=== PATIENT | female | born 1950 | race Caucasian/White ===

== ENCOUNTER → 2016-09-05 | Outpatient (CLI) | payer BC ==
[~2016-09-05] MED LIST: LEVAQUIN 5500 MG/TA1 PO; LEVOTHYROXIN0.088 MG PO; SYNTHROID0.088 MG/T PO
== END ==
LOC: MC.RAD 14:54
DX: Z12.31 Encounter for screening mammogram for malignant neoplasm of breast (principal)

== ENCOUNTER → 2017-09-30 | Outpatient (CLI) | payer BC | LOC: MC.RAD 14:00 | DX: Z12.31 Encounter for screening mammogram for malignant neoplasm of breast (principal) ==

== ENCOUNTER → 2018-10-13 | Outpatient (CLI) | payer BC | LOC: MC.RAD 14:15 | DX: Z12.31 Encounter for screening mammogram for malignant neoplasm of breast (principal) ==

== ENCOUNTER → 2019-10-27 | Outpatient (CLI) | payer BC | LOC: MC.RAD 12:51 | DX: Z12.31 Encounter for screening mammogram for malignant neoplasm of breast (principal) ==

== ENCOUNTER → 2020-10-31 | Outpatient (CLI) | payer BC ==
[~2020-10-31] MED LIST changes: +EPIPEN 2-PAK1 MG/ML IM; +PEPCID 20MG TAB20 MG PO; +PREDNISONE10 MG PO; +SYNTHROID0.075 MG/T PO; +ZYRTEC 10MG10 MG PO
== END ==
LOC: MC.RAD 14:26
DX: Z12.31 Encounter for screening mammogram for malignant neoplasm of breast (principal)

== ENCOUNTER 2021-01-07 04:14 | Observation (INO) | payer MEDICARE ==
[2021-01-07] VITALS (124 sets, daily range): BP systolic 138–179; BP diastolic 61–88; PULSE 71–86; TEMP 97.6–98.4; O2SAT 90–100
[~2021-01-07] VITALS: Ht 157.5 cm; Wt 68.2 kg
[~2021-01-07 04:14] MED LIST changes: -EPIPEN 2-PAK1 MG/ML IM; -PEPCID 20MG TAB20 MG PO; -PREDNISONE10 MG PO; -SYNTHROID0.075 MG/T PO; -ZYRTEC 10MG10 MG PO
[2021-01-07] MEDS ORDERED: SYNTHROID0.075 MG/T PO (07:58)
--- NOTE | 2021-01-07 08:30 | NUR ---
Pt arrived to ICU room 5. She is A/O x4, she is accompanied by her . Pt currently denies any pain. Feels that the swelling to her lips and tongue have improved although still present to lower lip. She does have a raspy voice and feels this is different than baseline. She denies any difficulty breathing at this time. No pain present. POC discussed with patient who verbalizes understanding. IV to [facility] patent. No needs at this time. Call light within reach.
--- NOTE | 2021-01-07 20:30 | NUR ---
Initial shift assessment done- denies pain, denies SOB, No lip/facial swelling noted- denies problems with swallowing. VSS, will have some jello for a snack- remains on C.L
[2021-01-08 01:59] VITALS: BP 145/98; PULSE 84; TEMP 97.7
--- NOTE | 2021-01-08 02:00 | NUR ---
Patient states hand itching-- went to room and pt had right hand edema- very red in between finges- swelling mainly over knuckles,, also has red rash in a [facility] around nose and mouth and has hives of various sizes on abdomen and back-- Shantel ALFRED called- will give Benadryl IV also she will be up to see patient. VSS, NO SOB . No voice changes. No lip swelling noted-
[2021-01-08 04:13] VITALS: BP 139/62; PULSE 81; TEMP 98.5
--- NOTE | 2021-01-08 04:30 | NUR ---
Still has circular rash to face- right hand redness is much improved- still has some edema to right hand over knuckles, hives to abdomen and back are gone, does have some redness between left fingers and over left knuckles.. States feels fine, has been sleeping, VSS.
[2021-01-08 06:08] LABS: BASO % 0.1 % (0.0-2.0); GRAN # 8.4 (1.4-6.5); GRAN % 81.6 % (42.2-75.2); HEMATOCRIT 41.1 % (37.0-47.0); HEMOGLOBIN 13.8 g/dl (12.5-16.0); LYMPH # 1.5 (1.2-3.4); LYMPH % 14.3 % (20.0-51.0); MEAN CELL VOLUME 87 fl (80.0-100.0); MEAN CORPUSCULAR HEMOGLOBIN 29 pg (27.0-31.0); MEAN CORPUSCULAR HGB CONC 34 g/dl (33.0-37.0); MEAN PLATELET VOLUME 8.9 fl (7.4-10.4); MONO # 0.4 (0.1-0.6); MONO % 3.5 % (1.7-9.3); PLATELET COUNT 219 K/mm3 (130-400); RED BLOOD COUNT 4.74 M/mm3 (4.10-5.30); REDCELL DISTRIBUTION WIDTH-CV 12.5 % (11.5-14.5)
[2021-01-08 06:26] LABS: ALBUMIN 3.8 gm/dL (3.5-5.0); BILIRUBIN,TOTAL 0.4 mg/dL (0.0-1.0); CALCIUM 8.9 mg/dL (8.4-10.2); CREATININE, serum 0.62 (0.52-1.25); TOTAL PROTEIN 6.6 gm/dL (6.4-8.2)
[2021-01-08 07:58] VITALS: BP 144/96; PULSE 82; TEMP 98.1
--- NOTE | 2021-01-08 08:29 | NUR ---
Pt awake upon entry, sitting in the recliner. No C/O pain at this time. Shift assessment complete, left Pt call light in reach.
[2021-01-08] MEDS ORDERED: ZYRTEC 10MG10 MG PO (10:10)
[2021-01-08] MEDS ORDERED: PREDNISONE10 MG PO (10:10)
[2021-01-08] MEDS ORDERED: PEPCID 20MG TAB20 MG PO (10:11)
[2021-01-08] MEDS ORDERED: EPIPEN 2-PAK1 MG/ML IM (10:12)
--- NOTE | 2021-01-08 12:23 | NUR ---
Pt discharged to home. Discussed discharge instructions with Pt and spouse, answered questions. Escorted Pt to entrance, Pt left with spouse via private transportation.
== END 2021-01-08 12:25 | disposition home or self-care (01) ==
LOC: COL.ER 04:14 → ICU 06:29 → MEDICAL 12:39
PROVIDERS: Student in an Organized Health Care Education/Training Program; ADMIT Internal Medicine
DX: T78.3XXA Angioneurotic edema, initial encounter (principal); E03.9 Hypothyroidism, unspecified; Z79.890 Hormone replacement therapy; M25.50 Pain in unspecified joint; R21 Rash and other nonspecific skin eruption
CPT/HCPCS: 99239; G0378; J0171; J1200; J2920; J2930; J7030

== ENCOUNTER → 2021-11-22 | Outpatient (CLI) | payer MEDICARE ==
[~2021-11-22] MED LIST changes: +EPIPEN 2-PAK1 MG/ML IM; +PEPCID 20MG TAB20 MG PO; +PREDNISONE10 MG PO; +SYNTHROID0.075 MG/T PO; +ZYRTEC 10MG10 MG PO
== END ==
LOC: MC.RAD 11-06 10:00
DX: Z12.31 Encounter for screening mammogram for malignant neoplasm of breast (principal)

== ENCOUNTER → 2023-12-05 | Outpatient (CLI) | payer MEDICARE | LOC: MC.RAD 05:38 | DX: Z12.31 Encounter for screening mammogram for malignant neoplasm of breast (principal) ==